=== PATIENT | male | born 1950 | race Two or more races ===

== ENCOUNTER 2020-06-05 00:07 | Emergency (ER) | payer MEDICAID ==
[~2020-06-05] VITALS: Ht 165.1 cm; Wt 59.9 kg
[2020-06-05 00:30] VITALS: BP 122/68
--- NOTE | 2020-06-05 00:30 | NUR ---
ED Nurse Note: Patient walked in from home accompanied by daughter c/o head and body aches for 3 days 04/13, non radiating. Patient aao x 4 and ambulatory with steady gait. Patient's primary language is Farsi but requests daughter to translate. Patient changed into gown and placed on electronic test technician. No acute distress noted.
--- NOTE | 2020-06-05 00:36 | Emergency Room Report ---
History of Present Illness General Chief Complaint: Pain Source: Patient, Family Member Present Illness HPI This is 70-year-old male with no past medical history. He presents with complaint of flulike illness. Started for the last 2 to 3 days. Initially with headache and eye pain. Now seems to going down to the rest of his body. He said he aches and pain. No nausea no vomiting. No fever chills but no d izziness. His headache is much improved. He went to urgent care today and had a rapid Covid test and was negative. Because he still has symptoms is daughter brought him here. No chest pain. No nausea no vomiting. No fever chills. No cough or congestion. 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 COVID-19 Screening: Negative COVID-19 COVID-19 Testing Source: [facility] Patient History Past Medical History: none, see triage record, old chart reviewed Past Surgical History: none Pertinent Family History: none Social History: Denies: smoking Immunizations: other Reviewed Nursing Documentation: PMH: Agreed; PSxH: Agreed Nursing Documentation-PMH Past Medical History: No Stated History Review of Systems Eye: Denies: eye pain, blurred vision ENT: Denies: ear pain, nose congestion, throat swelling Respiratory: Denies: cough, shortness of breath Cardiovascular: Denies: chest pain, palpitations Gastrointestinal: Denies: abdominal pain, diarrhea, nausea, vomiting Musculoskeletal: Reports: muscle pain; Denies: back pain, joint pain Skin: Denies: rash Neurological: Denies: headache, numbness Endocrine: Denies: increased thirst, increased urine Hematologic/Lymphatic: Denies: easy bruising All Other Systems: negative except mentioned in HPI Physical Exam Vital Signs Date Time Temp Pulse Resp B/P (MAP) Pulse Ox O2 Delivery O2 Flow Rate FiO2 06/05/20 00:22 97.7 80 18 112/64 (80) 94 Room Air Vitals normal Sp02 EP Interpretation: reviewed, normal General Appearance: well appearing, no apparent distress, alert Head: normocephalic, atraumatic Eyes: bilateral eye PERRL, bilateral eye EOMI ENT: hearing grossly normal, normal pharynx Neck: full range of motion, supple, no meningismus Respiratory: chest non-tender, lungs clear, normal breath sounds Cardiovascular #1: regular rate, rhythm, no murmur Gastrointestinal: normal bowel sounds, non tender, no mass, no organomegaly, no bruit, non-distended Musculoskeletal: back normal, normal range of motion, gait/station normal Psychiatric: mood/affect normal Medical Decision Making Diagnostic Impression: Primary Impression: Myalgia Additional Impression: GERD (gastroesophageal reflux disease) Qualified Codes: K21.9 - Gastro-esophageal reflux disease without esophagitis ER Course Patient presents with myalgia. Labs unremarkable. This may be mild viral infection. He has negative Covid testing this morning. He also now complaining of some sour taste in his mouth. There is no chest pain. Rhythm Strip Diag. Results EP Interpretation: yes Rate: 80 Rhythm: NSR, no PVC's, no ectopy Last Vital Signs Date Time Temp Pulse Resp B/P (MAP) Pulse Ox O2 Delivery O2 Flow Rate FiO2 06/05/20 00:22 97.7 80 18 112/64 (80) 94 Room Air Status: improved Disposition: HOME, SELF-CARE Condition: Stable Scripts Ibuprofen* (MOTRIN*) 600 Mg Tablet 600 MG ORAL Q6H PRN for For Pain, #30 TAB 0 Refills Prov: Daniel Nagel MD 06/05/20 Omeprazole (OMEPRAZOLE) 40 Mg Capsule.dr 40 MG ORAL TWICE A DAY, #30 CAP Prov: Daniel Nagel MD 06/05/20 Referrals: NON PHYSICIAN (PCP) Additional Instructions: Follow-up with your doctor in 7 days. Return if symptoms worsen. Daniel Nagel MD Jun 05, 2020 00:36
[2020-06-05] MEDS ORDERED: Ketorolac 30mg Inj IV ONE (00:45)
[2020-06-05 01:11] LABS: APPEARANCE,URINE CLEAR; BILIRUBIN, URINE NEGATIVE (NEGATIVE); COLOR,URINE PALE YELLOW; GLUCOSE, URINE (UA) NEGATIVE (NEGATIVE); KETONES,URINE NEGATIVE (NEGATIVE); LEUKOCYTE ESTERASE ,URINE NEGATIVE (NEGATIVE); NITRITE,URINE NEGATIVE (NEGATIVE); PH,URINE 7 (4.5-8.0); PROTEIN,URINE NEGATIVE (NEGATIVE); UROBILINOGEN,URINE NORMAL MG/DL (0.0-1.0)
[2020-06-05 01:13] LABS: BASOPHILS % (AUTO) 1.4 % (0.0-2.0); EOSINOPHILS % (AUTO) 1.6 % (0.0-3.0); HEMATOCRIT 42.1 % (42.0-52.0); HEMOGLOBIN 15.2 G/DL (14.2-18.0); LYMPHOCYTES % (AUTO) 42.8 % (20.0-45.0); MEAN CORPUSCULAR VOLUME 94 FL (80-99); MONOCYTES % (AUTO) 7.8 % (1.0-10.0); NEUTROPHILS % (AUTO) 46.5 % (45.0-75.0); PLATELET COUNT 172 K/UL (150-450); RED BLOOD COUNT 4.49 M/UL (4.70-6.10); RED CELL DISTRIBUTION WIDTH 11.3 % (11.6-14.8); WHITE BLOOD COUNT 6.6 K/UL (4.8-10.8)
[2020-06-05 01:26] LABS: ANION GAP 8 mmol/L (5-15); BLOOD UREA NITROGEN 27 mg/dL (7-18); CALCIUM 8.5 MG/DL (8.5-10.1); CARBON DIOXIDE 27 MMOL/L (21-32); CHLORIDE 104 MMOL/L (98-107); CREATININE 1.4 MG/DL (0.55-1.30); POTASSIUM 4.2 MMOL/L (3.5-5.1); SODIUM 139 MMOL/L (136-145)
[2020-06-05 01:31] LABS: ALANINE AMINOTRANSFERASE 35 U/L (12-78); ALBUMIN 3.5 G/DL (3.4-5.0); ALBUMIN/GLOBULIN RATIO 1.1 (1.0-2.7); ALKALINE PHOSPHATASE 64 U/L (46-116); ASPARTATE AMINO TRANSFERASE 28 U/L (15-37); BILIRUBIN,TOTAL 0.4 MG/DL (0.2-1.0); CREATINE KINASE 75 U/L (26-308)
[2020-06-05] MEDS ORDERED: OMEPRAZOLE40 M1 ORAL (01:39)
[2020-06-05] MEDS ORDERED: IBUPROFEN600 M1 ORAL (01:39)
[2020-06-05 01:45] VITALS: BP 117/72
--- NOTE | 2020-06-05 01:45 | NUR ---
ER DISCHARGE NOTE: Patient is cleared to be discharged per ERMD, pt is aox4, on room air, with stable vital signs. pt was given dc and prescription instructions, pt was able to verbalize understanding, pt id band and iv site removed intact without complications. pt is able to ambulate with steady gait. pt took all belongings. pt stable upon discharge.
== END 2020-06-05 01:45 | disposition home or self-care (01) ==
LOC: EMR 00:34
DX: M79.10 Myalgia, unspecified site (principal); K21.9 Gastro-esophageal reflux disease without esophagitis; R51.9 Headache, unspecified; H57.10 Ocular pain, unspecified eye
CPT/HCPCS: 36415; 80053; 81001; 82550; 85025; 96361; 96374; J1885; J7030; Z7502; 99284